=== PATIENT | female | born 1995 | race Caucasian/White ===

== ENCOUNTER 2021-08-27 19:32 | Emergency (ER) | payer OTHER, SELFPAY ==
[~2021-08-27] VITALS: Ht 160 cm; Wt 59.9 kg
[2021-08-27 19:53] VITALS: BP 119/77
[2021-08-27 20:21] VITALS: BP 119/77
== END 2021-08-27 20:21 | disposition home or self-care (01) ==
LOC: MED 19:32
DX: M79.10 Myalgia, unspecified site (principal); R51.9 Headache, unspecified; R06.02 Shortness of breath; Z20.822 Contact with and (suspected) exposure to COVID-19
CPT/HCPCS: 99283; U0003

== ENCOUNTER 2022-01-06 12:17 | Outpatient (CLI) | payer OTHER ==
[2022-01-06 12:58] LABS: BASOPHILS # (AUTO) 0.1 K/uL (0.00-0.22); BASOPHILS % (AUTO) 1.6 % (0.0-2.0); EOSINOPHILS # (AUTO) 0.1 K/uL (0-0.4); EOSINOPHILS % (AUTO) 1.8 % (0.0-4.0); HEMATOCRIT 36.5 % (36-48); HEMOGLOBIN 12.4 g/dL (12.0-16.0); LYMPHOCYTES # (AUTO) 1.3 K/uL (2.5-16.5); LYMPHOCYTES % (AUTO) 31.5 % (20.5-51.1); MEAN CORPUSCULAR HEMOGLOBIN 31 pg (27-31); MEAN CORPUSCULAR HGB CONC 34 g/dL (33-37); MONOCYTES # (AUTO) 0.2 K/uL (0.8-1.0); MONOCYTES % (AUTO) 5.8 % (1.7-9.3); NEUTROPHILS # (AUTO) 2.5 K/uL (1.8-7.7); NEUTROPHILS % (AUTO) 59.3 % (42.2-75.2); PLATELET COUNT (AUTO) 184 K/uL (140-450); RED BLOOD CELL COUNT(AUTO) 4.05 MIL/uL (4.20-5.40); RED CELL DISTRIBUTION WIDTH 13.2 % (11.6-13.7); WHITE BLOOD COUNT (AUTO) 4.2 K/uL (4.8-10.8)
[2022-01-06 13:09] LABS: APPEARANCE,URINE SL CLOUDY (CLEAR); BILIRUBIN,URINE NEGATIVE (NEGATIVE); BLOOD, URINE NEGATIVE (NEGATIVE); COLOR,URINE YELLOW (YELLOW); LEUKOCYTE ESTERASE ,URINE NEGATIVE (NEGATIVE); NITRITE, URINE NEGATIVE (NEGATIVE); UGLUCOSE NEGATIVE (NEGATIVE)
[2022-01-06 13:50] LABS: ALBUMIN 3.7 g/dL (3.4-5.0); ANION GAP 13.7 (8-16); BILIRUBIN,DIRECT 0.1 mg/dL (0.0-0.3); CHOL/HDL RATIO 3.5 (1-4.5); CREATININE 0.6 mg/dL (0.6-1.3); POTASSIUM 3.7 mmol/L (3.5-5.1); THYROID STIMULATING HORMONE 1.05 uIU/mL (0.34-3.74); TOTAL BILIRUBIN 0.6 mg/dL (0.0-1.0)
== END 2022-01-06 21:22 | disposition home or self-care (01) ==
LOC: MRD 12:17
PROVIDERS: ATTEND General Practice
DX: Z00.00 Encounter for general adult medical examination without abnormal findings (principal); M54.50 Low back pain, unspecified
CPT/HCPCS: 36415; 71046; 72110; 80053; 80076; 81003; 82272; 82550; 83036; 84443; 85025

== ENCOUNTER 2023-03-17 10:03 | Outpatient (CLI) | payer OTHER ==
[2023-03-17 10:27] LABS: APPEARANCE,URINE CLEAR (CLEAR); BILIRUBIN,URINE NEGATIVE (NEGATIVE); BLOOD, URINE NEGATIVE (NEGATIVE); COLOR,URINE YELLOW (YELLOW); LEUKOCYTE ESTERASE ,URINE NEGATIVE (NEGATIVE); NITRITE, URINE NEGATIVE (NEGATIVE); UGLUCOSE NEGATIVE (NEGATIVE)
[2023-03-17 10:57] LABS: BASOPHILS % (AUTO) 0.7 % (0.0-2.0); EOSINOPHILS # (AUTO) 0.1 K/uL (0-0.4); EOSINOPHILS % (AUTO) 1.8 % (0.0-4.0); HEMATOCRIT 38.1 % (36-48); LYMPHOCYTES # (AUTO) 1.4 K/uL (2.5-16.5); LYMPHOCYTES % (AUTO) 23.9 % (20.5-51.1); MEAN CORPUSCULAR HEMOGLOBIN 31 pg (27-31); MEAN CORPUSCULAR HGB CONC 34 g/dL (33-37); MONOCYTES # (AUTO) 0.3 K/uL (0.8-1.0); MONOCYTES % (AUTO) 5.4 % (1.7-9.3); NEUTROPHILS # (AUTO) 3.9 K/uL (1.8-7.7); NEUTROPHILS % (AUTO) 68.2 % (42.2-75.2); PLATELET COUNT (AUTO) 199 K/uL (140-450); RED BLOOD CELL COUNT(AUTO) 4.23 MIL/uL (4.20-5.40); WHITE BLOOD COUNT (AUTO) 5.7 K/uL (4.8-10.8)
[2023-03-17 11:04] LABS: ALBUMIN 3.9 g/dL (3.4-5.0); ANION GAP 10.6 (8-16); CARBON DIOXIDE 29.1 mmol/L (21-32); CHOL/HDL RATIO 3.3 (1-4.5); CREATININE 0.6 mg/dL (0.6-1.3); POTASSIUM 3.7 mmol/L (3.5-5.1); THYROID STIMULATING HORMONE 0.68 uIU/mL (0.34-3.74)
[2023-03-19 09:06] LABS: FOLIC ACID 11.1 ng/mL (>3.0); FOLLICLE STIMULATING HORMONE 13.2 mIU/mL (.)
== END 2023-03-17 20:41 | disposition home or self-care (01) ==
LOC: MLB 10:03
PROVIDERS: ATTEND Internal Medicine
DX: Z13.220 Encounter for screening for lipoid disorders (principal); M53.3 Sacrococcygeal disorders, not elsewhere classified; R42 Dizziness and giddiness; M54.81 Occipital neuralgia; R51.9 Headache, unspecified
CPT/HCPCS: 36415; 70450; 72131; 80053; 81003; 82306; 82607; 82728; 82746; 83001; 83036; 83540; 84443; 85025

== ENCOUNTER 2024-06-25 10:00 | Emergency (ER) | payer OTHER ==
[~2024-06-25] VITALS: Ht 160 cm; Wt 60.3 kg
[2024-06-25 10:02] VITALS: BP 119/65; PULSE 89; RESP 19; TEMP 98; O2SAT 100
--- NOTE | 2024-06-25 10:32 | NUR ---
PATIENT PRESENTS TO ED WITH SORE THROAT AND FEVER . PT STATES SHE HAS BEEN SICK X 4 DAYS AND THROAT IS PAINFUL . DENIES N/V/D; SKIN IS PINK/WARM/DRY; AAOX4 WITH EVEN AND STEADY GAIT; LUNGS CLEAR BL; HR EVEN AND REGULAR; PT STATES FEVER OF 102.0 THIS MORNING AND COUGH; PATIENT STATES PAIN OF 10/10 AT THIS TIME; VSS; PATIENT POSITIONED FOR COMFORT; HOB ELEVATED; BEDRAILS UP X2; BED DOWN. ER MD MADE AWARE OF PT STATUS.
[2024-06-25] MEDS: DEXAMETHASONE 10 MG/ML VIAL IM ONE (11:25)
[2024-06-25 11:39] LABS: FLU A ANTIGEN negative (NEGATIVE); FLU B ANTIGEN NEGATIVE (NEGATIVE)
--- NOTE | 2024-06-25 12:00 | NUR ---
STREP SWAB OBTAINED AND SENT TO LAB
[2024-06-25] MEDS ORDERED: AMOX-1230 PO (12:57)
[2024-06-25] MEDS: AMOXIL/CLAVULANATE 875/125 MG 1 TAB PO ONE (13:43)
[2024-06-25] MEDS: KETOROLAC 30 MG/ML VIAL IM ONE (13:44)
[2024-06-25 14:36] VITALS: BP 108/63; PULSE 75; RESP 16; TEMP 98; O2SAT 100
--- NOTE | 2024-06-25 14:36 | NUR ---
Patient discharged with v/s stable. Written and verbal after care instructions given and explained. Patient alert, oriented and verbalized understanding of instructions. Ambulatory with steady gait. All questions addressed prior to discharge. ID band removed. Patient advised to follow up with PMD. Rx of AMOX-CLAV 875/125 given. Patient educated on indication of medication including possible reaction and side effects. Opportunity to ask questions provided and answered.
== END 2024-06-25 14:36 | disposition home or self-care (01) ==
LOC: MED 10:00
DX: J02.9 Acute pharyngitis, unspecified (principal); H66.91 Otitis media, unspecified, right ear; Z20.822 Contact with and (suspected) exposure to COVID-19; Z79.2 Long term (current) use of antibiotics
CPT/HCPCS: 87081; 87426; 87804; 96372; 99284; J1100; J1885

== ENCOUNTER 2024-08-11 12:24 | Outpatient (CLI) | payer OTHER ==
[~2024-08-11 12:24] MED LIST: AMOX-1230 PO
== END 2024-08-11 15:37 | disposition home or self-care (01) ==
LOC: MLB 12:24 → MRD 15:37
PROVIDERS: ATTEND Internal Medicine
DX: Z11.1 Encounter for screening for respiratory tuberculosis (principal); R76.11 Nonspecific reaction to tuberculin skin test without active tuberculosis
CPT/HCPCS: 71046